=== PATIENT | female | born 1965 | race Caucasian/White ===

== ENCOUNTER 2016-11-13 09:05 | Emergency (ER) | payer OTHER ==
[2016-11-13] MEDS ORDERED: DIAZEPAM 5 MG TAB PO STA (09:42)
[2016-11-13] MEDS ORDERED: KETOROLAC 60 MG/2 ML VIAL IM STA (09:42)
--- NOTE | 2016-11-13 09:46 | ED ---
General Adult HPI - General Chief complaint: Back Pain/Injury Stated complaint: back pain Time Seen by Provider: 11/13/16 09:35 Source: patient, RN notes reviewed Mode of arrival: ambulatory Limitations: no limitations - History of Present Illness Initial comments: Patient 51-year-old female who presents emergency room today with a chief complaint of increased back pain 2 days. Does admit to having history of some back problems with constant tingling sensation at times in the upper back and into the right shoulder. Patient states worse over the last 2 days after helping a friend move. Denies any significant injury or trauma. Patient states that pain is reproduced with movements. States it hurts to move the upper arms also the neck grader on the left than the right. Patient denies any radicular pain. Denies any bowel or bladder incontinence or retention. Denies any saddle anesthesia. Patient denies any recent fever, chills, shortness of breath, chest pain, abdominal pain, nausea or vomiting, dysuria or hematuria, constipation or diarrhea, headaches or visual changes, or any other complaints. - Related Data Previous Rx's Medication Instructions Recorded Cyclobenzaprine [Flexeril] 10 mg PO TID #20 tab 11/13/16 Ibuprofen [Motrin] 800 mg PO Q6HR PRN #30 tab 11/13/16 Allergies Allergy/AdvReac Type Severity Reaction Status Date / Time No Known Allergies Allergy Verified 11/13/16 09:38 Review of Systems ROS Statement: Those systems with pertinent positive or pertinent negative responses have been documented in the HPI. ROS Other: All systems not noted in ROS Statement are negative. Past Medical History Past Medical History: Hyperlipidemia History of Any Multi-Drug Resistant Organisms: None Reported Past Surgical History: Section, Cholecystectomy Past Psychological History: No Psychological Hx Reported Smoking Status: Current every day smoker Past Alcohol Use History: Rare Past Drug Use History: Marijuana General Exam - General Exam Comments Initial Comments: General: The patient is awake and alert, in no distress, and does not appear acutely ill. Eye: Pupils are equal, round and reactive to light, extra-ocular movements are intact. No nystagmus. There is normal conjunctiva bilaterally. No signs of icterus. Ears, nose, mouth and throat: There are moist mucous membranes and no oral lesions. Neck: The neck is supple, there is no tenderness or JVD. Cardiovascular: There is a regular rate and rhythm. No murmur, rub or gallop is appreciated. Respiratory: Lungs are clear to auscultation, respirations are non-labored, breath sounds are equal. No wheezes, stridor, rales, or rhonchi. Musculoskeletal: Normal appearance of cervical and thoracic, lumbar spine. No step-offs forms appreciated. Patient does have tenderness paravertebrally both on left and right sides of the upper thoracic spine. Tender in the trapezius area of the left side greater than right. Patient does have some mild tenderness at C6-C7 and paravertebrally tender both on left and right sides in this area. Strength 5/5. Sensation intact. Pulses equal bilaterally 2+. Neurological: A&O x 3. CN II-XII intact, There are no obvious motor or sensory deficits. Coordination appears grossly intact. Speech is normal. Skin: Skin is warm and dry and no rashes or lesions are noted. Psychiatric: Cooperative, appropriate mood & affect, normal judgment. Limitations: no limitations Course Vital Signs 11/13/16 09:16 Temperature 98.3 F Pulse Rate 61 Respiratory 18 Rate Blood Pressure 148/70 O2 Sat by Pulse 100 Oximetry Medical Decision Making - Medical Decision Making Patient's x-rays reviewed does show degenerative changes. No other acute abnormalities. Results were discussed with the patient. She's been reexamined at this time shows no signs of stress is feeling better after Toradol and Valium here in the emergency room. Patient will be continued on anti- inflammatories and muscle laxer. She been made aware that muscle relaxant may make her drowsy. Advised to return here to the emergency room symptoms increase worsen or for any other concerns. Disposition Clinical Impression: Acute back pain Disposition: HOME SELF-CARE Condition: Good Instructions: Muscle Strain (ED) Additional Instructions: Please use medication as discussed. Please be aware that muscle relaxant may make you drowsy. Please follow-up with family doctor in the next 2 days of symptoms have not improved. Please return to emergency room if the symptoms increase or worsen or for any other concerns. Prescriptions: Cyclobenzaprine [Flexeril] 10 mg PO TID #20 tab Ibuprofen [Motrin] 800 mg PO Q6HR PRN #30 tab PRN Reason: Pain Referrals: None,Stated [Primary Care Provider] - 1-2 days Cristobal Rodas MD [REFERRING] - 1-2 days Time of Disposition: 10:46
--- NOTE | 2016-11-13 10:39 | XR ---
EXAMINATION TYPE: XR cervical spine comp DATE OF EXAM: 11/13/2016 10:20 AM COMPARISON: NONE HISTORY: Pain TECHNIQUE: 5 view cervical spine FINDINGS: There is disc space narrowing C5-C6. Small anterior and posterior vertebral body spurs are from the endplate at this level. Prevertebral space is normal. Foramen are patent. No acute osseous abnormality is evident. IMPRESSION: 1. Degenerative disc changes C5-C6.
--- NOTE | 2016-11-13 10:39 | XR ---
EXAMINATION TYPE: XR thoracic spine complete DATE OF EXAM: 11/13/2016 10:21 AM COMPARISON: NONE HISTORY: Pain TECHNIQUE: 3 view thoracic spine FINDINGS: There are 12 thoracic type vertebral bodies. Pedicles are intact. Disc heights are preserve d. Vertebral body heights are preserved. Alignment is normal. IMPRESSION: 1. Normal three-view thoracic spine.
[2016-11-13 11:07] VITALS: BP 130/80; PULSE 53; RESP 16; TEMP 97.1
== END 2016-11-13 11:05 | disposition home or self-care (01) ==
LOC: EC 09:05
DX: M54.9 Dorsalgia, unspecified (principal); F17.200 Nicotine dependence, unspecified, uncomplicated
CPT/HCPCS: 72072; 72050; 99283; 96372; J1885

== ENCOUNTER 2018-11-19 19:07 | Emergency (ER) | payer OTHER ==
[2018-11-19 19:12] VITALS: BP 125/81; PULSE 79; RESP 18; TEMP 98.4
[2018-11-19] MEDS ORDERED: DIPH,PERTUS(ACELL)TETVAC-LF 0.5 ML VIAL IM ONE (20:47)
[2018-11-19] MEDS ORDERED: HYDROcodone/APAP 7.5-325MG 1 EACH TAB PO ONE (20:47)
--- NOTE | 2018-11-19 21:25 | XR ---
Right tibia and fibula 2 views. History pain. Comparison none. FINDINGS: Knee joint and ankle joint appear intact. I see no fracture nor dislocation. Soft tissues appear norm al. IMPRESSION: Negative right tibia and fibula exam.
--- NOTE | 2018-11-19 21:26 | XR ---
Right ankle 3 views. History pain. Fall. Comparison none. FINDINGS: Ankle mortise is anatomic. I see no fracture nor dislocation. There is some sclerosis and cystic doty ge in the dome of the talus. IMPRESSION: Sclerotic and cystic changes in the talus could relate to avascular necrosis or posttraumatic degener ative cyst formation. No acute fracture seen.
--- NOTE | 2018-11-19 21:28 | XR ---
Lumbar spine history back pain. Comparison none. Technique 3 views. FINDINGS: Vertebra have normal alignment. Disc spaces are fairly normal. Posterior elements are intact. There i s no compression fracture. Sacroiliac joints appear normal. IMPRESSION: Negative lumbar spine exam.
--- NOTE | 2018-11-19 21:47 | ED ---
General Adult HPI - General Source: patient, RN notes reviewed, old records reviewed Mode of arrival: ambulatory Limitations: no limitations <Raj Zuniga - Last Filed: 11/19/18 23:03> <Marychuy Rivas - Last Filed: 11/20/18 03:26> - General Chief complaint: Fall Stated complaint: Fall, rt leg injury Time Seen by Provider: 11/19/18 20:25 - History of Present Illness Initial comments: 53-year-old female patient with no pertinent past medical history presents to ED after sustaining a fall earlier today. Patient was standing on a concrete step when he collapsed, patient fell down to approximately 1.5 foot hole. She suffered a small abrasion to her right anterior tibia/fibula. Patient primary complaint is right paralumbar back pain. Patient denies any secondary fall or any trauma to head or neck. Patient denies any use of blood thinners. Patient is ambulatory without difficulty. Patient has a loss of bowel or bladder control, paresthesias, saddle anesthesia, lower extremity weakness. Patient denies other complaints. Systemic: Pt denies fatigue, fever/chills, rash. Pt denies weakness, night sweats, weight loss. Neuro: Pt denies headache, visual disturbances, syncope or pre-syncope. HEENT: Pt denies ocular discharge or irritation, otalgia, rhinorrhea, pharyngitis or notable lymphadenopathy. Cardiopulmonary: Pt denies chest pain, SOB, heart palpitations, dyspnea on exertion. Abdominal/GI: Pt denies abdominal pain, n/v/d. : Pt denies dysuria, burning w/ urination, frequency/urgency. Denies new onset urinary or bowel incontinence. MSK: Pt denies loss of strength or function in extremities. Neuro: Pt denies new onset weakness, paresthesias. (Raj Zuniga) - Related Data Previous Rx's Medication Instructions Recorded Cyclobenzaprine [Flexeril] 10 mg PO TID #20 tab 11/19/18 Ibuprofen [Motrin] 600 mg PO Q6HR PRN #40 day 11/19/18 Allergies Allergy/AdvReac Type Severity Reaction Status Date / Time codeine AdvReac Vomiting Verified 11/19/18 20:26 Review of Systems ROS Other: All systems not noted in ROS Statement are negative. <Raj Zuniga - Last Filed: 11/19/18 23:03> ROS Other: All systems not noted in ROS Statement are negative. <Marychuy Rivas P - Last Filed: 11/20/18 03:26> ROS Statement: Those systems with pertinent positive or pertinent negative responses have been documented in the HPI. Past Medical History Past Medical History: Hyperlipidemia History of Any Multi-Drug Resistant Organisms: None Reported Past Surgical History: Section, Cholecystectomy Past Psychological History: No Psychological Hx Reported Smoking Status: Current every day smoker Past Alcohol Use History: Rare Past Drug Use History: Marijuana <Raj Zuniga - Last Filed: 11/19/18 23:03> General Exam Limitations: no limitations <Raj Zuniga - Last Filed: 11/19/18 23:03> <Marychuy Rivas P - Last Filed: 11/20/18 03:26> - General Exam Comments Initial Comments: Constitutional: NAD, AOX3, Pt has pleasant affect. HEENT: NC/AT, trachea midline, neck supple, no lymphadenopathy. Posterior pharynx non erythematous, without exudates. External ears appear normal, without discharge. Mucous membranes moist. Eyes PERRLA, EOM intact. There is no scleral icterus. No pallor noted. Cardiopulmonary: RRR, no murmurs, rubs or gallops, no JVD noted. Lungs CTAB in anterior and posterior [place]. No peripheral edema. Abdominal exam: Abdomen soft and non-distended. Abdomen non-tender to palpation in all 4 quadrants. Bowel sounds active in LLQ. No hepatosplenomegaly. No ecchymosis Neuro: CN II-XII intact. No nuchal rigidity. MSK: Small abrasion noted in right anterior tibia. No ecchymoses. No other areas of tenderness on lower extremities. No midline cervical or thoracic tenderness. No midline lumbar tenderness. Mild amount of right paralumbar tenderness. 5 out of 5 strength psoas and quadriceps. Reflexes 2 out of 4 in the Achilles and patellar. Heel toe walking intact. No posterior calf tenderness bilaterally, homans sign negative bilaterally. Posterior tibialis and radial pulse +2 bilaterally. Sensation intact in upper and lower extremities. Full active ROM in upper and lower extremities, 5/5 stregnth. (Raj Zungia) Vital Signs 11/19/18 19:10 Temperature 98.4 F Pulse Rate 79 Respiratory 18 Rate Blood Pressure 125/81 O2 Sat by Pulse 99 Oximetry Medical Decision Making <Raj Zuniga - Last Filed: 11/19/18 23:03> <Marychuy Rivas - Last Filed: 11/20/18 03:26> - Medical Decision Making 53-year-old female patient with no pertinent past medical history presents to ED after sustaining a fall earlier today. Patient was standing on a concrete step when he collapsed, patient fell down to approximately 1.5 foot hole. She suffered a small abrasion to her right anterior tibia/fibula. Patient primary complaint is right paralumbar back pain. Patient denies any secondary fall or any trauma to head or neck. Patient denies any use of blood thinners. Pt VSS, afebrile. Physical exam displayed: Small abrasion noted in right anterior tibia. No ecchymoses. No other areas of tenderness on lower extremities. No midline cervical or thoracic tenderness. No midline lumbar tenderness. Mild amount of right paralumbar tenderness. 5 out of 5 strength psoas and quadriceps. Reflexes 2 out of 4 in the Achilles and patellar. Heel toe walking intact. Plain film of lumbar spine, tibia and fibula did not display acute pathology. Plain film of R ankle displayed sclerotic and cystic changes in the talus, these findingds were explained to pt at length. Pt to f/u with orthopedic consult for continued evaluation. Pt rx ibuprofen and flexeril to use as needed. PT to f/u with PCP in 1-2 days. Pt not driving home. Tetanus updated. Abrasion vigorously irrigated and loosely bandaged. Pt to return to ED if new s/sx develop or if condition worsens in anyway. Case discussed in depth with Dr. Rivas. (Raj Zuniga) I was available for consultation in the emergency department. The history and physical exam were done by the midlevel provider. I was consulted for this patient's care. I reviewed the case with the midlevel provider and based on their presentation of the patient, I agree with the assessment, medical decision making and plan of care as documented. (Marychuy Rivas) Disposition Is patient prescribed a controlled substance at d/c from ED?: No Time of Disposition: 21:46 <Raj Zuniga - Last Filed: 11/19/18 23:03> <RobMarychuy P - Last Filed: 11/20/18 03:26> Clinical Impression: Fall, Lumbar back pain Disposition: HOME SELF-CARE Condition: Stable Instructions (If sedation given, give patient instructions): Low Back Strain ( ED) Additional Instructions: Patient to adhere to previously discussed treatment plan and will take medication(s) as directed. Patient to follow up with PCP in 1-2 days. Patient to return to ED if symptoms do not improve. Please use ibuprofen as needed for pain and inflammation. Please use Flexeril as needed for muscle spasm. Please follow with primary care provider in 1-2 days. Orthopedic consult provided. Prescriptions: Cyclobenzaprine [Flexeril] 10 mg PO TID #20 tab Ibuprofen [Motrin] 600 mg PO Q6HR PRN #40 day PRN Reason: Pain Referrals: None,Stated [Primary Care Provider] - 1-2 days [facility] - 1-2 days Gabe Hoffman DO [Medical Doctor] - 1-2 days
== END 2018-11-19 21:57 | disposition home or self-care (01) ==
LOC: EC 19:07
DX: M54.5 Low back pain (principal); S80.811A Abrasion, right lower leg, initial encounter; M89.8X7 Other specified disorders of bone, ankle and foot; F17.200 Nicotine dependence, unspecified, uncomplicated; Z88.5 Allergy status to narcotic agent; Z23 Encounter for immunization; W10.9XXA Fall (on) (from) unspecified stairs and steps, initial encounter; Y93.89 Activity, other specified
CPT/HCPCS: 72100; 90471; 90715; 99284

== ENCOUNTER 2021-04-27 20:35 | Emergency (ER) | payer OTHER ==
[2021-04-27 20:40] VITALS: BP 135/78; PULSE 79; RESP 18; TEMP 97.6
--- NOTE | 2021-04-27 21:01 | ED ---
ENT HPI - General Source: patient Mode of arrival: ambulatory Limitations: no limitations <Lawson Alcala - Last Filed: 04/27/21 21:01> <Tran Dash - Last Filed: 04/28/21 16:34> - General Chief complaint: Dental/Oral Stated complaint: Dental Pain Time Seen by Provider: 04/27/21 20:42 - History of Present Illness Initial comments: 55-year-old female presents emergency Department with a chief complaint of dental pain and facial swelling on the chin. Patient reports it all started chin and now she has pain along the lower front teeth. Patient reports the swelling is indurated but not erythematous. Reports some clear discharge but denies any fevers or chills. States the induration is starting to spread to the right side of the face. She is not diabetic. No difficulty swallowing or breathing. States she has an appointment on Thursday with a dentist. (Lawson Alcala) - Related Data Previous Rx's Medication Instructions Recorded Cyclobenzaprine [Flexeril] 10 mg PO TID #20 tab 11/19/18 Ibuprofen [Motrin] 600 mg PO Q6HR PRN #40 day 11/19/18 Clindamycin HCl 300 mg PO Q6HR #40 cap 04/27/21 Allergies Allergy/AdvReac Type Severity Reaction Status Date / Time codeine AdvReac Vomiting Verified 04/27/21 20:40 Review of Systems ROS Other: All systems not noted in ROS Statement are negative. <Lawson Alcala - Last Filed: 04/27/21 21:01> ROS Other: All systems not noted in ROS Statement are negative. <Tran Dash - Last Filed: 04/28/21 16:34> ROS Statement: Those systems with pertinent positive or pertinent negative responses have been documented in the HPI. Past Medical History Past Medical History: Hyperlipidemia History of Any Multi-Drug Resistant Organisms: None Reported Past Surgical History: Section, Cholecystectomy Past Psychological History: No Psychological Hx Reported Smoking Status: Current every day smoker Past Alcohol Use History: Rare Past Drug Use History: Marijuana <Lawson Alcala - Last Filed: 04/27/21 21:01> General Exam Limitations: no limitations General appearance: alert, in no apparent distress Head exam: Present: atraumatic, normocephalic, normal inspection Eye exam: Present: normal appearance, PERRL, EOMI Pupils: Present: normal accommodation ENT exam: Present: normal exam (In indurated region on the chin was noted with mild extension to the right side along the mandible. No signs of Brent's angina. No discharge noted. No surrounding erythema. Tender to touch.), normal oropharynx (Tenderness along the bottom lower teeth but no signs periapical abscess. No gingival irritation.), mucous membranes moist, TM's normal bilaterally, normal external ear exam Neck exam: Present: normal inspection, full ROM. Absent: tenderness, lymphadenopathy Respiratory exam: Present: normal lung sounds bilaterally. Absent: respiratory distress Cardiovascular Exam: Present: regular rate, normal rhythm, normal heart sounds. Absent: systolic murmur Extremities exam: Present: normal inspection, full ROM, normal capillary refill. Absent: tenderness Back exam: Present: normal inspection, full ROM. Absent: tenderness, CVA tenderness (R), CVA tenderness (L) Neurological exam: Present: alert, oriented X3 Psychiatric exam: Present: normal affect, normal mood Skin exam: Present: warm, dry, intact, normal color <Lawson Alcala - Last Filed: 04/27/21 21:01> Course Vital Signs 04/27/21 20:37 Temperature 97.6 F Pulse Rate 79 Respiratory 18 Rate Blood Pressure 135/78 O2 Sat by Pulse 99 Oximetry Medical Decision Making <Lawson Alcala - Last Filed: 04/27/21 21:01> <Tran Dash - Last Filed: 04/28/21 16:34> - Medical Decision Making 55-year-old female presents to emergency Department with chief complaint of dental pain. On physical examination, tenderness on the lower anterior teeth but no signs of an abscess. The infection appears to be localized to the outside on the chin but no signs of an abscess at this time. The region is indurated but not erythematous without any discharge. I will start the patient on clindamycin to cover for MRSA or other oral infectious etiology. She will be given symptomatically here. She has an appointment with the dentist on Thursday. Return parameters were thoroughly discussed with patient was up standing and agreeable. Strict return parameters were thoroughly discussed the patient's worsening agreeable. Case discussed with physician. (Jovanovski,Lawson) I was available for consultation in the emergency department. The history and physical exam were done by the midlevel provider. I was consulted for this patients care. I reviewed the case with the midlevel provider and based on their presentation of the patient, I agree with the assessment, medical decision making and plan of care as documented. Chart was dictated using [employer] dictation software. Attempts were made to correct any dictation errors however some typographical errors may persist. Patient was seen during a national state of emergency due to the Covid-19 pandemic. (Tran Dash) Disposition Is patient prescribed a controlled substance at d/c from ED?: No Time of Disposition: 21:01 <Lawson Alcala - Last Filed: 04/27/21 21:01> <Tran Dash - Last Filed: 04/28/21 16:34> Clinical Impression: Toothache Disposition: HOME SELF-CARE Condition: Stable Instructions (If sedation given, give patient instructions): Toothache (ED) Additional Instructions: Take prescribed medication as directed. Follow with primary care physician. Return to emergency department if symptoms worsen. Prescriptions: Clindamycin HCl 300 mg PO Q6HR #40 cap Referrals: None,Stated [Primary Care Provider] - 1-2 days
[2021-04-27] MEDS: HYDROcodone/APAP 5-325MG 1 EACH TAB PO STA (21:33)
[2021-04-27] MEDS: CLINDAMYCIN 150 MG CAP PO STA (21:33)
[2021-04-27] MEDS: ACET/COD 300 MG/30 MG STARTER PACK 6 TAB BTL PO STA (21:34)
== END 2021-04-27 21:37 | disposition home or self-care (01) ==
LOC: EC 20:35
DX: K08.89 Other specified disorders of teeth and supporting structures (principal); R22.0 Localized swelling, mass and lump, head; R23.4 Changes in skin texture; E78.5 Hyperlipidemia, unspecified; F17.200 Nicotine dependence, unspecified, uncomplicated; F12.90 Cannabis use, unspecified, uncomplicated
CPT/HCPCS: 99283

== ENCOUNTER → 2022-08-26 | Outpatient (CLI) | payer OTHER | LOC: CPPFTMAIN 09:58 | PROVIDERS: ATTEND Internal Medicine | DX: J43.9 Emphysema, unspecified (principal); Z88.5 Allergy status to narcotic agent; F17.200 Nicotine dependence, unspecified, uncomplicated | CPT/HCPCS: 94060; 94726; 94729 ==

== ENCOUNTER → 2022-09-17 | Outpatient (CLI) | payer OTHER ==
--- NOTE | 2022-09-17 11:51 | CTL ---
EXAMINATION TYPE: CT Low Dose Lung DATE OF EXAM ORDERED: 09/17/2022 HISTORY: . Lung cancer screening CT DLP: [address] CTDI: 2.4 mGy Automated exposure control for dose reduction was used. SCREENING VISIT: COMPARISON: TECHNIQUE: Low dose computed tomography scan was performed through the chest at 1 mm thick sections a nd reconstructed images in multiple planes at 1 mm and [address] DIAGNOSTIC QUALITY: Satisfactory FINDINGS: Mild emphysematous changes. No focal pneumonia. No pleural effusion or pneumothorax. No interstitial edema. Minimal groundglass changes seen bilaterally most likely on the basis of atelectasis. No pleural or parenchymal calcifications. An umbilical apical pleural thickening. Hypertrophic change s of the spine. Postcholecystectomy changes incidentally noted. Heart size normal. Coronary artery calcification noted. Aorta normal caliber with atherosclerotic mary nges. No pathologic adenopathy. On axial image 108 there is a 2 mm upper lobe pulmonary nodule. On axial image 115 there is a 1 mm nodule superior segment right lower lobe. On axial image 52 there is a 3 mm subpleural nodule right upper lobe anterior segment. On axial image 78 there is a 3 mm subpleural nodule right upper lobe. IMPRESSION: 1. COPD with some 5 mm pulmonary nodules too small to characterize but have a benign appearance. 2. Coronary artery calcification. CT LUNG RAD AND CT CHEST RECOMMENDATION: Lung-Rad 2 Benign Appearance or Behavior: Continue annual sc reening with LDCT in 12 months. S Modifier (other clinically significant findings): S
== END | disposition home or self-care (01) ==
LOC: RADCTMAIN 10:44
PROVIDERS: ATTEND Internal Medicine
DX: Z12.2 Encounter for screening for malignant neoplasm of respiratory organs (principal); J44.9 Chronic obstructive pulmonary disease, unspecified; I25.10 Atherosclerotic heart disease of native coronary artery without angina pectoris; R91.8 Other nonspecific abnormal finding of lung field; Z87.891 Personal history of nicotine dependence
CPT/HCPCS: 71271

== ENCOUNTER → 2022-10-07 | Outpatient (CLI) | payer OTHER ==
[2022-10-07 08:44] VITALS: BP 126/80; PULSE 65; RESP 16; TEMP 98.9
--- NOTE | 2022-10-07 09:25 | P.HPOB ---
History of Present Illness H&P Date: 10/07/22 Chief Complaint: The patient is here for her routine gynecologic exam and ma mmogram. This is a 57-year-old with an LMP of 2012. The patient is here to establish with this office. It has been more than 5 years since her last pelvic exam. She is without gynecologic complaints and denies any postmenopausal bleeding. Review of Systems Weight has been stable. She denies cardiac or GI problems. Respiratory: Occasional wheezing and coughing and she has seen her primary care physician for this and has undergone workup. Past Medical History Past Medical History: COPD, Hyperlipidemia Additional Past Medical History / Comment(s): Emphysema. 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 History of Any Multi-Drug Resistant Organisms: None Reported Past Surgical History: Section, Cholecystectomy Additional Past Surgical History / Comment(s): section for twins, , then repeat with tubal ligation. Past Psychological History: No Psychological Hx Reported (She denies current depression.) Smoking Status: Current every day smoker (About one half of a pack of cigarettes per day.) Past Alcohol Use History: Rare (1 per year) Past Drug Use History: Marijuana (Daily use.) Additional History: She is currently in the process of getting a divorce. She has been with her current boyfriend since 2019 and a live together. 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 - Past Family History Mother Family Medical History: Unable to Obtain Additional Family Medical History / Comment(s): The patient is adopted and does not know her biological family history. Medications and Allergies Home Medications and Allergies Comment(s): Albuterol updraft as needed. Home Medications Medication Instructions Recorded Confirmed Type Ibuprofen [Motrin] 600 mg PO Q6HR PRN #40 day 11/19/18 10/07/22 Rx Allergies Allergy/AdvReac Type Severity Reaction Status Date / Time codeine AdvReac Vomiting Verified 10/07/22 08:34 Exam Vital Signs Temp Pulse Resp BP Pulse Ox 10/07/22 08:35 98.9 F 65 16 126/80 100 Intake and Output 10/06/22 10/07/22 10/07/22 22:59 06:59 14:59 Other: Weight 79.379 kg Height 5 feet 5 inches, weight 175 pounds, BMI 29.1. This is a well-developed well-nourished white female who is alert and oriented times 3 in no acute distress. HEENT: Within normal limits. NECK: Supple without mass or thyromegaly. CHEST AND LUNGS: There are scattered inspiratory and expiratory wheezes. HEART: Regular rate and rhythm. BREASTS: Are without mass or discharge. AXILLARY EXAM: Negative for adenopathy. BACK: Negative for CVA tenderness. ABDOMEN: Soft, nontender, without palpable masses. PELVIC EXAM: Normal external genitalia with mild atrophy. Cervix and vagina appear normal with minimal atrophy. There is no unusual discharge. There is no evidence of prolapse. The uterus is midposition, nongravid size and nontender. There are no palpable adnexal masses or tenderness. RECTAL EXAM: Rectovaginal exam is negative for mass or tenderness and is negative for occult blood. EXTREMITIES: Nontender. IMPRESSION: 1. 57-year-old menopausal female with normal gynecologic exam. 2. History of emphysema managed by her PCP. PLAN: 1. Pap smear cotest was performed. 2. Self breast awareness was discussed with the patient. We have also di scussed symptoms associated with inflammatory breast cancer. 3. Screening mammogram will be done today. 4. Osteoporosis prevention was discussed. I have stressed the importance of adequate calcium, vitamin D and regular exercise. Recommended amounts of calcium and vitamin D were also discussed. Baseline bone density test will be done today as ordered by her PCP. 5. Colorectal cancer screening was discussed. She states she is in the process of doing Cologuard testing through her PCP. 6. She has not had a Covid vaccination and has not had Covid. She understands it can be consequences if she does get Covid. She will consider vaccination. 7. She was advised to return in one year for her annual well woman exam.
--- NOTE | 2022-10-07 11:05 | BD ---
EXAMINATION TYPE: Axial Bone Density DATE OF EXAM: 10/07/2022 COMPARISON: NONE CLINICAL HISTORY: 57 years old Female. ICD-10 CODE: Z78.0 Post menopausal without HRT Height: 63 Weight: 171 FRAX RISK QUESTIONS: Family History (Parent hip fracture): NO History of Fracture in Adulthood: NO Secondary Osteoporosis: NO Rheumatoid Arthritis: NO Current Tobacco Use: YES RISK FACTORS HISTORY OF: Family History of Osteoporosis: NO Active: YES Diet low in dairy products/other sources of calcium: NO Postmenopausal woman: YES Lost more than 2 inches in height since high school: NO Frequent falls: NO Poor Health: NO Hyperparathyroidism: NO Adrenal Insufficiency: NO MEDICATIONS: Additional Medications: YES IBUPROFEN 600 EXAM MEASUREMENTS: Bone mineral densitometry was performed using the [employer] System. Bone mineral density as measured about the Lumbar spine is: ----- L1-L4(G/cm2): 1.262 T Score Values are as follows: ----- L1: 0.6 ----- L2: -0.3 ----- L3: 0.9 ----- L4: 1.2 ----- L1-L4: 0.7 Bone mineral density BASELINE Bone mineral density about the R hip (g/cm2): 0.993 Bone mineral density about the L hip (g/cm2): 0.984 T Score values are as follows: -----R Neck: -1.1 -----L Neck: -1.1 -----R Total: -0.1 -----L Total: -0.2 Bone mineral density BASELINE FRAX%s: The graph provided illustrates a 6.4% chance for a major osteoporotic fx and a 0.4% chance fo r the hips probability for fx in 10 years time. IMPRESSION: Osteopenia (T Score between -2.5 and -1). There is slightly increased risk of fracture and the patient may be considered for treatment. Re-Screen 2-5 years. NOTE: T-SCORE=SD OF THE YOUNG ADULT MEAN.
--- NOTE | 2022-10-08 07:41 | MM ---
Reason for Exam: Screening (asymptomatic). Patient History: Menarche at age 12. First Full-Term at age 18. Postmenopausal. Risk Values: Sena 5 year model risk: 0.9%. NCI Lifetime model risk: 5.7%. Prior Study Comparison: No prior studies available for comparison. Tissue Density: The breast tissue is almost entirely fat. Findings: Analyzed By CAD. There is no suspicious group of microcalcifications or new suspicious mass in either breast. Overall Assessment: Negative, BI-RAD 1 Management: Screening Mammogram of both breasts in 1 year. A clinical breast exam by your physician is recommended on an annual basis and results should be correlated with mammographic findings. [facility] will attempt to contact patient to return for supplemental views and ultrasound if indicated. Electronically signed and approved by: Alexander Longo DO
== END ==
LOC: WWCWWP 08:25
PROVIDERS: ATTEND Obstetrics & Gynecology
DX: Z12.31 Encounter for screening mammogram for malignant neoplasm of breast (principal); Z13.820 Encounter for screening for osteoporosis; J44.9 Chronic obstructive pulmonary disease, unspecified; E78.5 Hyperlipidemia, unspecified; F17.200 Nicotine dependence, unspecified, uncomplicated; Z88.5 Allergy status to narcotic agent; Z01.411 Encounter for gynecological examination (general) (routine) with abnormal findings; Z87.09 Personal history of other diseases of the respiratory system
CPT/HCPCS: 77067; 77080